=== PATIENT | male | born 2000 | race Caucasian/White ===

== ENCOUNTER 2018-09-08 09:44 | Emergency (ER) | payer MEDICAID ==
[~2018-09-08] VITALS: Ht 180.3 cm; Wt 136.0 kg
[2018-09-08 10:58] LABS: BASOPHILS % 0.3 % (0.0-2.0); EOSINOPHILS % 0.3 % (0.0-5.0); HEMATOCRIT. 42.3 % (42.0-52.0); HEMOGLOBIN. 14.7 g/dL (14.0-18.0); LYMPHOCYTES % 18.8 % (20.0-50.0); MEAN CORPUSCULAR HEMOGLOBIN 30.7 pg (28.0-32.0); MEAN CORPUSCULAR VOLUME 88.2 fL (80.0-94.0); MEAN PLATELET VOLUME 7.8 fl (7.4-10.4); MONOCYTES % 7.6 % (2.0-8.0); PLATELET 219 x1000/uL (130-400); RED CELL DISTRIBUTION WIDTH 13.2 % (11.6-14.6)
[2018-09-08] MEDS ORDERED: OLANZAPINE 10 MG/VIAL IM ONE (11:00)
[2018-09-08] MEDS ORDERED: LORAZEPAM 2MG/ML CPJ IM ONE (11:00)
[2018-09-08] MEDS ORDERED: OLANZAPINE 5MG TABLET ODT PO ONE (11:00)
[2018-09-08] MEDS ORDERED: DIPHENHYDRAMINE 50MG/ML VIAL IM ONE (11:00)
[2018-09-08] MEDS ORDERED: LORAZEPAM 1MG TABLET PO ONE (11:00)
[2018-09-08] MEDS ORDERED: DIPHENHYDRAMINE 50MG/ML VIAL ONE (11:03)
[2018-09-08 11:04] LABS: CHLORIDE 104 mEq/L (98-107)
[2018-09-08] MEDS ORDERED: LORAZEPAM 2MG/ML CPJ ONE (11:04)
[2018-09-08 11:09] LABS: ETHANOL BLOOD < 10 mg/dL
[2018-09-08 11:23] LABS: *BENZODIAZEPINES SCREEN URINE NEGATIVE (NEGATIVE); METHADONE URINE SCREEN NEGATIVE (NEGATIVE)
[2018-09-08 11:25] LABS: *COCAINE SCREEN URINE NEGATIVE (NEGATIVE)
[2018-09-08 11:26] LABS: OPIATES URINE SCREEN NEGATIVE (NEGATIVE)
[2018-09-08 11:27] LABS: *AMPHETAMINES SCREEN URINE NEGATIVE (NEGATIVE)
[2018-09-08 11:28] LABS: *BARBITURATES SCREEN URINE NEGATIVE (NEGATIVE)
[2018-09-08 11:29] LABS: CANNABINOID URINE SCREEN PRESUMTIVE POSITIVE (NEGATIVE)
[2018-09-08 11:34] LABS: PHENCYCLIDINE URINE SCREEN NEGATIVE (NEGATIVE)
[2018-09-08 17:35] VITALS: BP 126/74
== END 2018-09-08 17:39 | disposition home or self-care (01) ==
LOC: ER 12:36
DX: R45.851 Suicidal ideations (principal); F20.9 Schizophrenia, unspecified; F12.10 Cannabis abuse, uncomplicated; F41.8 Other specified anxiety disorders; F32.9 Major depressive disorder, single episode, unspecified
CPT/HCPCS: 36415; 80048; 80305; 80307; 80329; 85025; 96372; 99283; G0482; J1200; J2060; J3490